=== PATIENT | female | born 1985 | race Caucasian/White ===

== ENCOUNTER 2016-12-25 22:54 | Emergency (ER) | payer OTHER ==
[2016-12-25 23:01] VITALS: BP 136/86; PULSE 98; RESP 20; TEMP 97.2; O2SAT 100
[2016-12-25] MEDS ORDERED: APAP/HYDROCODONE 325/5 TAB PO ONE (23:59)
[2016-12-26] MEDS ORDERED: APAP/HYDROCODONE 325/5 TAB ONE
== END 2016-12-26 00:12 | disposition home or self-care (01) ==
LOC: ED 22:54
DX: S90.112A Contusion of left great toe without damage to nail, initial encounter (principal); W20.8XXA Other cause of strike by thrown, projected or falling object, initial encounter
CPT/HCPCS: 73660; 99282

== ENCOUNTER 2017-12-31 13:37 | Outpatient (CLI) | payer OTHER ==
[2016-12-25 23:01] VITALS: O2SAT 100
== END 2017-12-31 13:38 | disposition home or self-care (01) ==
LOC: CONVCARE 13:37
PROVIDERS: ATTEND Orthopaedic Surgery
DX: M25.561 Pain in right knee (principal)
CPT/HCPCS: 73564

== ENCOUNTER 2019-02-08 16:02 | Emergency (ER) | payer OTHER | END 2019-02-08 18:10 | disposition home or self-care (01) | LOC: ED 16:02 ==